=== PATIENT | female | born 1990 | race Two or more races ===

== ENCOUNTER 2025-04-01 06:21 | Day surgery (SDC) | payer OTHER ==
[~2025-04-01] VITALS: Ht 157.5 cm; Wt 84.0 kg
[~2025-04-01 06:21] MED LIST: OMEP-148 PO
[2025-04-01] MEDS ORDERED: SODIUM CHLORIDE 0.9% 1,000 ML ONE (06:36)
[2025-04-01] MEDS: SODIUM CHLORIDE 0.9% 1,000 ML IV ONE (07:20)
[2025-04-01] MEDS ORDERED: GLYCOPYRROLATE 0.2 MG/ML VIAL ONE (12:00)
[2025-04-01] MEDS ORDERED: PROPOFOL 1% 20 ML VIAL IVP ONE (12:00)
== END 2025-04-01 10:45 | disposition home or self-care (01) ==
LOC: SURGERY 06:21
PROVIDERS: ATTEND Internal Medicine
DX: K31.7 Polyp of stomach and duodenum (principal); K21.9 Gastro-esophageal reflux disease without esophagitis; Z79.899 Other long term (current) drug therapy; Z98.890 Other specified postprocedural states
CPT/HCPCS: 43251; 84703; 88305; C1769; J2704; J3490; J7030